=== PATIENT | female | born 1955 | race Caucasian/White ===

== ENCOUNTER 2019-01-31 04:42 | Emergency (ER) | payer BC, MEDICARE ==
[2019-01-31 04:52] VITALS: BP 120/81; BMI 26.6
[2019-01-31] MEDS ORDERED: SINGULAIR10 MG PO (04:54)
[2019-01-31] MEDS ORDERED: AMBIEN CR 6.26.25 MG PO (04:54)
[2019-01-31] MEDS ORDERED: VOLTAREN75 MG PO (05:49)
[2019-01-31 06:38] LABS: APPEARANCE CLEAR (CLEAR); BILIRUBIN NEGATIVE (NEGATIVE); COLOR YELLOW (YELLOW); GLUCOSE NEGATIVE (NEGATIVE); KETONE NEGATIVE (NEGATIVE); NITRITE NEGATIVE (NEGATIVE); PROTEIN NEGATIVE (NEGATIVE); UROBILINOGEN NORMAL (NORMAL)
[2019-01-31 06:39] LABS: BACTERIA MANY /hpf (NONE SEEN); RED CELLS - URINE 0-5 /hpf (0-5)
[2019-01-31 06:40] LABS: UDS - AMPHET NEGATIVE QUAL (NEGATIVE); UDS - BARB NEGATIVE QUAL (NEGATIVE); UDS - BENZO NEGATIVE QUAL (NEGATIVE); UDS - COCAINE NEGATIVE QUAL (NEGATIVE); UDS - OPIATE NEGATIVE QUAL (NEGATIVE); UDS - PCP NEGATIVE QUAL (NEGATIVE); UDS - THC POSITIVE QUAL (NEGATIVE)
[2019-01-31] MEDS ORDERED: MACROBID100 MG PO (06:49)
[2019-01-31 07:20] LABS: BASOPHILS 0.3 % (0-2); EOSINOPHILS 0.6 % (0-7); HEMOGLOBIN 14.7 g/dL (12-16); IMMATURE GRANULOCYTES 0.1 % (0-5); LYMPHOCYTES 20.4 % (15-50); MCH 28.7 pg (26.0-34.0); MCHC 34.2 g/dL (31.0-37.0); MCV 83.8 fL (80.0-100.0); MEAN PLATELET VOLUME 10.2 fL (7.4-10.4); MONOCYTES 9.6 % (2-11); PLATELET COUNT 260 10x3/uL (130-400); RBC 5.13 10x6/uL (4.00-5.40); RDW 13.3 % (11.5-14.5); WBC 7.8 10x3/uL (4.8-10.8)
[2019-01-31 07:39] LABS: ALBUMIN 3.9 g/dL (3.4-5.0); ALKALINE PHOSPHATASE 73 U/L (46-116); ALT (SGPT) 35 U/L (10-68); BILIRUBIN - TOTAL 0.47 mg/dL (0.2-1.3); CALC OSMOLALITY 278 mosm/kg (275-300); CALCIUM 9.4 mg/dL (8.5-10.1); CARBON DIOXIDE 25.1 mmol/L (21.0-32.0); CHLORIDE - SERUM 105 mmol/L (98-107); CREATININE - SERUM 0.7 mg/dL (0.6-1.3); GLUCOSE 102 mg/dL (74-106); POTASSIUM - SERUM 4.3 mmol/L (3.5-5.1); PROTEIN - SERUM 7.3 g/dL (6.4-8.2); SODIUM 140 mmol/L (136-145); UREA NITROGEN 13 mg/dL (7-18); eGFR NON AFRICAN AMERICAN 89 mL/min (90-120)
== END 2019-01-31 08:07 | disposition home or self-care (01) ==
LOC: D.ER 04:42
PROVIDERS: Emergency Medicine
DX: M94.0 Chondrocostal junction syndrome [Tietze] (principal); N30.90 Cystitis, unspecified without hematuria

== ENCOUNTER 2019-02-22 12:31 | Emergency (ER) | payer BC, MEDICARE ==
[~2019-02-22] VITALS: Ht 175.3 cm; Wt 63.6 kg
[~2019-02-22 12:31] MED LIST: AMBIEN CR 6.26.25 MG PO; MACROBID100 MG PO; SINGULAIR10 MG PO; VOLTAREN75 MG PO
[2019-02-22 12:39] VITALS: Ht 175.3 cm; Wt 63.6 kg
[2019-02-22 13:00] LABS: APPEARANCE CLEAR (CLEAR); BILIRUBIN NEGATIVE (NEGATIVE); COLOR YELLOW (YELLOW); GLUCOSE NEGATIVE (NEGATIVE); KETONE NEGATIVE (NEGATIVE); NITRITE NEGATIVE (NEGATIVE); PROTEIN NEGATIVE (NEGATIVE); SPECIFIC GRAVITY 1.015 (1.005-1.020); UROBILINOGEN NORMAL (NORMAL)
[2019-02-22 13:02] LABS: EPITHELIAL CELLS 0-5 /hpf (0-5); RED CELLS - URINE 0-5 /hpf (0-5); WHITE CELLS - URINE 0-5 /hpf (0-5)
[2019-02-22 13:03] LABS: BACTERIA FEW /hpf (NONE SEEN)
[2019-02-22 13:09] LABS: BASOPHILS 0.2 % (0-2); EOSINOPHILS 0.7 % (0-7); HEMATOCRIT 44.2 % (36.0-48.0); IMMATURE GRANULOCYTES 0.2 % (0-5); LYMPHOCYTES 20.4 % (15-50); MCH 28.6 pg (26.0-34.0); MCHC 33.9 g/dL (31.0-37.0); MCV 84.2 fL (80.0-100.0); MEAN PLATELET VOLUME 9.6 fL (7.4-10.4); MONOCYTES 10.8 % (2-11); NEUTROPHILS 67.7 % (40-80); PLATELET COUNT 277 10x3/uL (130-400); RBC 5.25 10x6/uL (4.00-5.40); RDW 13.6 % (11.5-14.5); WBC 8.6 10x3/uL (4.8-10.8)
[2019-02-22 13:30] LABS: UDS - AMPHET NEGATIVE QUAL (NEGATIVE); UDS - BARB NEGATIVE QUAL (NEGATIVE); UDS - BENZO NEGATIVE QUAL (NEGATIVE); UDS - COCAINE NEGATIVE QUAL (NEGATIVE); UDS - OPIATE NEGATIVE QUAL (NEGATIVE); UDS - PCP NEGATIVE QUAL (NEGATIVE); UDS - THC POSITIVE QUAL (NEGATIVE)
[2019-02-22 13:40] LABS: ALBUMIN 4.1 g/dL (3.4-5.0); ALKALINE PHOSPHATASE 84 U/L (46-116); ALT (SGPT) 43 U/L (10-68); BILIRUBIN - TOTAL 0.54 mg/dL (0.2-1.3); CALC OSMOLALITY 274 mosm/kg (275-300); CARBON DIOXIDE 25.1 mmol/L (21.0-32.0); CHLORIDE - SERUM 102 mmol/L (98-107); CREATININE - SERUM 0.8 mg/dL (0.6-1.3); GLUCOSE 105 mg/dL (74-106); POTASSIUM - SERUM 4.3 mmol/L (3.5-5.1); PROTEIN - SERUM 7.4 g/dL (6.4-8.2); SODIUM 137 mmol/L (136-145); UREA NITROGEN 14 mg/dL (7-18); eGFR NON AFRICAN AMERICAN 76 mL/min (90-120)
[2019-02-22 13:46] LABS: THYROID STIMULATING HORMONE 0.83 uIU/mL (0.36-3.74)
[2019-02-22 14:10] VITALS: BP 158/89
== END 2019-02-22 14:11 | disposition home or self-care (01) ==
LOC: D.ER 12:31
PROVIDERS: Emergency Medicine
DX: F31.9 Bipolar disorder, unspecified (principal); F41.9 Anxiety disorder, unspecified; F22 Delusional disorders

== ENCOUNTER 2019-06-26 13:51 | Inpatient (IN) | payer BC, MEDICARE ==
[~2019-06-26] VITALS: Ht 172.7 cm; Wt 76.5 kg
[2019-06-26 14:54] LABS: APPEARANCE CLEAR (CLEAR); BILIRUBIN NEGATIVE (NEGATIVE); COLOR STRAW (YELLOW); GLUCOSE NEGATIVE (NEGATIVE); KETONE NEGATIVE (NEGATIVE); NITRITE NEGATIVE (NEGATIVE); PROTEIN NEGATIVE (NEGATIVE); SPECIFIC GRAVITY 1.005 (1.005-1.020); UROBILINOGEN NORMAL (NORMAL)
[2019-06-26 15:04] LABS: UDS - AMPHET NEGATIVE QUAL (NEGATIVE); UDS - BARB NEGATIVE QUAL (NEGATIVE); UDS - BENZO NEGATIVE QUAL (NEGATIVE); UDS - COCAINE NEGATIVE QUAL (NEGATIVE); UDS - OPIATE NEGATIVE QUAL (NEGATIVE); UDS - PCP NEGATIVE QUAL (NEGATIVE); UDS - THC POSITIVE QUAL (NEGATIVE)
[2019-06-26 15:59] LABS: BASOPHILS 0.3 % (0-2); EOSINOPHILS 0.1 % (0-7); HEMATOCRIT 44.4 % (36.0-48.0); HEMOGLOBIN 15.1 g/dL (12-16); IMMATURE GRANULOCYTES 0.3 % (0-5); LYMPHOCYTES 13.5 % (15-50); MCV 85.2 fL (80.0-100.0); MONOCYTES 10.5 % (2-11); NEUTROPHILS 75.3 % (40-80); PLATELET COUNT 277 10x3/uL (130-400); RBC 5.21 10x6/uL (4.00-5.40); RDW 12.8 % (11.5-14.5); WBC 7.9 10x3/uL (4.8-10.8)
[2019-06-26 16:09] LABS: APTT 26.1 SECONDS (22.8-39.4); PROTIME 12.7 SECONDS (11.6-15.0)
[2019-06-26 16:17] LABS: CALC OSMOLALITY 272 mosm/kg (275-300); CALCIUM 9.2 mg/dL (8.5-10.1); CARBON DIOXIDE 28.8 mmol/L (21.0-32.0); CHLORIDE - SERUM 99 mmol/L (98-107); CREATININE - SERUM 0.6 mg/dL (0.6-1.3); GLUCOSE 101 mg/dL (74-106); SODIUM 137 mmol/L (136-145); UREA NITROGEN 10 mg/dL (7-18); eGFR NON AFRICAN AMERICAN > 90 mL/min (90-120)
[2019-06-26 16:48] LABS: ALBUMIN 3.9 g/dL (3.4-5.0); ALKALINE PHOSPHATASE 88 U/L (46-116); ALT (SGPT) 35 U/L (10-68); BILIRUBIN - TOTAL 0.37 mg/dL (0.2-1.3); CHOL - HDL RATIO 3.5 ratio (2.3-4.1); CHOLESTEROL, TOTAL 225 mg/dL (0-200); HDL CHOLESTEROL 64 mg/dL (32-96); LDL CHOLESTEROL 139 mg/dL (0-100); LDL-HDL RATIO 2.2 ratio (1.5-3.5); MAGNESIUM - SERUM 1.9 mg/dL (1.8-2.4); PROTEIN - SERUM 7.7 g/dL (6.4-8.2); THYROID STIMULATING HORMONE 1.23 uIU/mL (0.36-3.74); TRIGLYCERIDE 111 mg/dL (30-200)
--- NOTE | 2019-06-26 18:28 | NUR ---
PT ACCEPTED TO [facility]IOR [facility] BY ABISAI COOPER. SBAR REPORT CALLED TO ABISAI COOPER AT THIS TIME. ROOM WILL BE AVAILABLE AT 1900 TODAY.
[2019-06-26] MEDS ORDERED: PRED-FORTE 1% OP5 ML LEFT EYE (21:18)
[2019-06-26] MEDS ORDERED: AMITRIPTYLINE H50 MG PO (21:19)
[2019-06-26] MEDS ORDERED: ESKALITH CR450 M1 PO (21:19)
[2019-06-26] MEDS ORDERED: BUSPAR10 MG PO (21:20)
[2019-06-26 21:26] VITALS: BP 180/100; BMI 26.3
--- NOTE | 2019-06-26 21:57 | NUR ---
PT ADMIT TO UNIT FROM ER WITH HOSPITAL STAFF AND DAUGHTER SHELIA PRESENT. SHE ARRIVED ON THE UNIT IN A WHEELCHAIR BUT IS AMBULATORY WITHOUT ASSIST. CODE WORD IS [place]. CODE STATUS IS DNR. HER DAUGHTER TOOK ALL BELONGINGS WITH HER. SHE IS CONTINENT AND ABLE TO MAKE HER NEEDS KNOWN.
[2019-06-27 08:43] LABS: CHOL - HDL RATIO 4.1 ratio (2.3-4.1); LDL-HDL RATIO 2.6 ratio (1.5-3.5); THYROID STIMULATING HORMONE 2.14 uIU/mL (0.36-3.74)
[2019-06-27 08:52] VITALS: Ht 172.7 cm; Wt 76.5 kg
[2019-06-27 09:47] VITALS: BP 146/53
--- NOTE | 2019-06-27 10:32 | NUR ---
B) The patient is anxious and she is worried about court and worried about her eyes. She is pleasant, but her thought process is scattered. I) Provide prescribed meds. R) Ativan 0.5 mg po given. The patient ambulates. She is writing in her notebook. P) Continue POC.
--- NOTE | 2019-06-27 14:54 | NUR ---
Idris from [facility] called to ask about the patient's d/c date so that he can let the court know. let him know we will meet with the psychiatrist and we will know more after that time and can call you. His number is [phone]. He also requested we call Chica Childers the patient's therapist when she is discharged.
--- NOTE | 2019-06-27 15:06 | NUR ---
The patient is manic and she is rambling. She is talking about random subjects, flitting from one subject to another. One she is discussing her POA then she tells me about a pill for young girls so that abortions never have to take place. She then discusses places to live like [place] and then [place], [place]. She has been asked to stopp speaking so that the other patient's can rest. Provided her ativan 0.5 mg po now because she is revving herself up in speech and she is starting to have racing thoughts and she is getting anxious speaking about court.
--- NOTE | 2019-06-27 20:47 | NUR ---
RECEIVED IN PATIENT ROOM. RESTING IN BED WITH EYES OPEN. CALM AND COOPERATIVE WITH CARE AND ASSESSMENT. NO MANIC BEHAVIOR NOTED. REDIRECT AND REORIENT NEEDED. RESTING IN BED WITH EYES CLOSED AT THIS TIME. CONTINUE PLAN OF CARE.
[2019-06-27 21:58] VITALS: BP 112/72
[2019-06-28 08:10] LABS: RAPID PLASMA REAGIN Non Reactive (Non Reactive)
[2019-06-28 08:29] VITALS: BP 119/87
--- NOTE | 2019-06-28 12:20 | NUR ---
PT IS TALKING ABOUT VARIOUS SUBJECTS AND STRECHING IN YOGA POSES. PT TAKES HER MEDICATIONS. PT IS ORIENTED AND FRIENDLY WITH STAFF. PT CAN BE INAPPROPRIATE AT TIMES IN WORDS AND ACTIONS.
--- NOTE | 2019-06-28 13:14 | PSY ---
PATIENT NAME:LIZBETH CARL MEDICAL RECORD: [id number] : 51 LOCATION:[facility] An[facility]ul1124 ADMISSION DATE: 06/26/19 ACCOUNT: [id number] PSYCHIATRIC EVALUATION DATE OF EVALUATION: 06/27/19 IDENTIFYING DATA: The patient is 63 years old and she is admitted to the hospital on a voluntary basis. CHIEF COMPLAINT: Anil. HISTORY OF PRESENT ILLNESS: The patient has a known history of bipolar disorder and she presented to the ER, manic. Apparently, a local automotive electrician helper ordered the evaluation or if she refused the evaluation, he was going to put her in shelter for criminal mischief charges. When asked to explain this, she takes me back to the and begins talking about some sort of argument with the property owners association over some flower beds that she is supposed to install. Because I suspected she was manic, I let her run with that story for more than 5 minutes uninterrupted and have no idea what she was talking about. After that, I asked her very focused questions and attempted to get information, but still she is unable to focus and answer questions in any organized way and most of which she says seems to be random and disorganized. I do not think she is trying to be deliberately evasive are difficult, she is simply manic. Apparently, she was supposed to be taking amitriptyline and lithium, but stopped about a month ago for reasons that are unclear and again asking questions about that provides me no information that is understandable or intelligible. PAST MEDICAL HISTORY: Largely unknown. The patient says she has had a hysterectomy and I know from her medication list that she has some sort of problems either with glaucoma or some other eye condition for which she takes a steroid eyedrop. PAST PSYCHIATRIC HISTORY: Apparently significant for extensive inpatient and outpatient treatment. She also had a suicide attempt in April of this year and was hospitalized in [place]. I am not sure why she was in [place] and again, her answer is unintelligible. FAMILY HISTORY: Unknown. ALLERGIES: ABILIFY, DEPAKOTE, THORAZINE, ZYPREXA, AND GEODON. CURRENT MEDICATIONS: Include Voltaren and multiple eye drops. SOCIAL HISTORY: The patient denies a history of drug or alcohol use, although she quickly adds that she smokes marijuana, but it is not a drug, it is an herb and she thinks there are no problems with this and it helps her sleep. She denies using cigarettes or other drugs. 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 MENTAL STATUS EXAMINATION: The patient is awake, alert and oriented to person, place and somewhat to time and situation. Her mood is anxious. Her affect is constricted. Thought processes are wildly disorganized with mood lability. She denies any active thoughts of harming herself or others. She denies psychotic symptoms. ASSESSMENT: AXIS I: 1. Bipolar disorder, manic. 2. Marijuana use disorder. AXIS II: Deferred. AXIS III: Asthma. AXIS IV: Moderate. AXIS V: Global assessment of functioning is 40. PLAN: At this time, the patient is manic. She has all the symptoms of classic anil associated with a bipolar I disorder. I am not sure I understand why she stopped taking her lithium, but I am going to start her back on it. She wants amitriptyline, which I have talked to her about not being in her best interest, but she is very insistent and simply to placate her at this point, I am going to allow her to have the amitriptyline. She was given Haldol and Ativan last night, she says it helped and indeed, the nursing report also indicates that she slept better after receiving the medication. TRANSINT:[id number] Voice Confirmation ID: [id number] DOCUMENT ID: [id number] ANIYAH DUGAN MD at 1314 CC: [id number] DICTATION DATE: 06/27/19 1800 INTERVENTIONAL NEURORADIOLOGIST: 06/27/19 1827 ADM IN [facility] [address] [place] [address]
--- NOTE | 2019-06-28 16:50 | NUR ---
PATIENT C/O OF ALL THE NOISE IN THE DAY AREA STATING "I CANT DEAL WITH ALL THIS NOISE. THE T.V. ALL THE PEOPLE AND I JUST CAN'T. I NEED SOMETHING TO CALM MY NERVES. AT HOME I'D USUALLY TAKE A WALK" ATIVAN 0.[address] DUGAN ORDER. WILL REASSESS
[2019-06-28 20:00] VITALS: BP 113/80
--- NOTE | 2019-06-28 21:31 | NUR ---
PATIENT CAN BE A LITTLE DEMANDING AT TIMES AND CAN CROSS BOUNDARIES, COMPLIANT WITH MEDS, NO REACTION NOTED. WILL FOLLOW POC
--- NOTE | 2019-06-29 09:50 | NUR ---
PATIENT SITTING IN OTHER ROOM READING A BOOK. PT IS LESS INTRUSIVE, DEMANDING, AND LESS TALKATIVE. PT IS TAKING MEDICATIONS, BEING COOPERATATIVE WITH STAFF. PT DID NOT SLEEP WELL. PT IS HAVING A LITHUIM LEVEL DRAWN THIS SHIFT. WILL CONT PLAN OF CARE.
[2019-06-29 11:03] VITALS: BP 132/90
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
--- NOTE | 2019-06-29 16:30 | NUR ---
PT DAUGHTER HERE TO VISIT. PT AND DAUGHTER ASKED QUESTIONS REGARDING D/C DATE. PT AND DAUGHTER CONCERNED IN REGARDS TO UPCOMING COURT DATE ON 07/02/19 REGARDING PT HOUSE PER PT REPORT. THIS NURSE EXPLAINED I WOULD DISCUSS THIS WITH SENIOR STORAGE ENGINEER AND DR. DUGAN IN THE MORNING. STAFF WOULD LET HER KNOW SOMETHING SOON POSSIBLE. DAUGHTER STATED " SHE WOULD CALL IN THE MORNING TO SPEAK WITH SOCIAL ROSSI." THIS NURSE ANSWERED ALL QUESTIONS AND CONCERNS AT THIS TIME. DISCUSSED LABS AND MEDS WITH PT AND DAUGHTER AT THIS TIME.
[2019-06-29 19:26] VITALS: BP 137/88
--- NOTE | 2019-06-29 21:27 | NUR ---
RECEIVED IN DINING AREA. DOING SOME YOGA. SOCIAL WITH STAFF AND PEERS. CALM AND COOPERATIVE WITH CARE AND ASSESSMENT. ENCOURAGE TO EXPRESS NEEDS. SITTING QUIETLY IN DAYROOM AT THIS TIME. CONTINUE PLAN OF CARE
--- NOTE | 2019-06-30 01:04 | NUR ---
PATIENT REQUEST ATIVAN FOR ANXIETY. STATES SHE IS HAS ANXIETY AND CANT SLEEP. PRN ATIVAN 0.5 MG PO GIVEN FOR ANXIETY.
--- NOTE | 2019-06-30 02:20 | NUR ---
RESTING IN BED WITH EYES CLOSED.
[2019-06-30 05:10] LABS: APPEARANCE CLEAR (CLEAR); BILIRUBIN NEGATIVE (NEGATIVE); COLOR YELLOW (YELLOW); GLUCOSE NEGATIVE (NEGATIVE); KETONE NEGATIVE (NEGATIVE); NITRITE NEGATIVE (NEGATIVE); PROTEIN NEGATIVE (NEGATIVE); SPECIFIC GRAVITY 1.005 (1.005-1.020); UROBILINOGEN NORMAL (NORMAL)
[2019-06-30 05:12] LABS: BACTERIA FEW /hpf (NEGATIVE); EPITHELIAL CELLS 0-5 /hpf (0-5); RED CELLS - URINE 0-5 /hpf (0-5); WHITE CELLS - URINE 0-5 /hpf (NEGATIVE)
[2019-06-30 05:35] LABS: UDS - AMPHET NEGATIVE QUAL (NEGATIVE); UDS - BARB NEGATIVE QUAL (NEGATIVE); UDS - BENZO NEGATIVE QUAL (NEGATIVE); UDS - COCAINE NEGATIVE QUAL (NEGATIVE); UDS - OPIATE NEGATIVE QUAL (NEGATIVE); UDS - PCP NEGATIVE QUAL (NEGATIVE); UDS - THC NEGATIVE QUAL (NEGATIVE)
--- NOTE | 2019-06-30 08:00 | NUR ---
REC'D PT IN HALLWAY BY NURSES STATION. AWAKE AND ALERT X 3. PT IS VERY TALKATIVE THIS MORNING. CALM AND COOPERATIVE WITH ASSESSMENT. PRESCRIBED MEDS PROVIDED. MED COMPLIANT. REDIRECT AND REORIENT NEEDED. FALL PRECAUTIONS IN PLACE. WILL CPOC.
[2019-06-30 09:13] VITALS: BP 138/94
--- NOTE | 2019-06-30 15:38 | PN ---
PATIENT:LIZBETH CARL MEDICAL RECORD: [id number] LOCATION:[facility] ADMISSION DATE: 06/26/19 PROGRESS NOTE DATE OF SERVICE: 06/29/2019 SUBJECTIVE: The patient's case was discussed with staff. She has no new complaint. OBJECTIVE: The patient is hyperverbal, but better. She is still disorganized in her thought processes. ASSESSMENT: Bipolar disorder. PLAN: The patient will have a lithium level checked. She wants me to check an estrogen level. I do not think that is necessary, but I am going to order it just because she has requested it and she is easily agitated and me arguing with her or trying to discuss with her why it is not necessary is not very effective. TRANSINT:[id number] Voice Confirmation ID: [id number] DOCUMENT ID: [id number] ANIYAH DUGAN MD at 1538 CC: [id number] DICTATION DATE: 06/29/19 1134 PRIMER PRESS OPERATOR: 06/29/19 1216 ADM IN [place] [id number] [place] [address]
[2019-06-30 20:00] VITALS: BP 167/77
--- NOTE | 2019-06-30 21:26 | NUR ---
RECEIVED IN DAYROOM. WALKING ABOUT SOCIAIZING WITH STAFF AND PEERS. CALM AND COOPERATIVE WITH CARE AND ASSESSMENT. NO MANIC BEHAVIOR THIS PM. ENCOURAGE TO EXPRESS NEEDS. RESTING IN BED WITH EYES CLOSED. CONTINUE PLAN OF CARE
[2019-07-01 08:58] VITALS: BP 122/83
--- NOTE | 2019-07-01 10:39 | NUR ---
RECEIVDED PATIENT IN DINING ROOM FOR B'FAST, ALERT, CALM, COOPERATIVE, NO AGGRESSION NOTED. MEDS ADMIN PER ORDERS WITH COMPLETE MED COMPLIANCE NOTED. HOWEVER, PT STATED THAT SHE WAS GOING TO SPEAK TO PHYSICIAN ABOUT HER CLONAZEPAM ORDER, STATING THAT THE MED CAUSED HER TO HAVE BLURRED VISION. PT STATES THAT SHE WOULD PREFER TO HAVE ATIVAN INSTEAD. COOPERATIVE WITH POC.
--- NOTE | 2019-07-01 11:24 | NUR ---
Nutrition Follow-up: Diet: Regular PO intake: 100% x last 8 meals Last BM = 06/28/19. Wt: 172# (06/29/19); Admit wt: 175# (06/26/19) No new labs. Meds and nursing skin assessment reviewed. Continue current nutrition regimen. RD Following.
--- NOTE | 2019-07-01 15:36 | PN ---
PATIENT:LIZBETH CARL MEDICAL RECORD: [id number] LOCATION:[facility]112 ADMISSION DATE: 06/26/19 PROGRESS NOTE DATE OF SERVICE: 06/30/2019 SUBJECTIVE: The patient's case was discussed with staff. She has no new complaint. OBJECTIVE: The patient is sleeping well. She still is hyperverbal. She has no thoughts of harming herself or others. Her lithium is therapeutic at 0.64. ASSESSMENT: Bipolar disorder. PLAN: Current medicines have been reviewed and will be maintained. I anticipate she can be transitioned out of the hospital soon. TRANSINT:[id number] Voice Confirmation ID: [id number] DOCUMENT ID: [id number] ANIYAH DUGAN MD at 1536 CC: [id number] DICTATION DATE: 06/30/19 1628 STUDIO DESIGNER: 06/30/19 1632 ADM IN [facility] [address] [place] [id number]
[2019-07-01] MEDS ORDERED: ATIVAN0.5 MG PO (15:44)
[2019-07-01] MEDS ORDERED: FEXOFENADINE HC60 MG PO (15:44)
[2019-07-01] MEDS ORDERED: VITAMIN D31000 UNI2 PO (15:45)
[2019-07-01 22:08] VITALS: BP 136/87
--- NOTE | 2019-07-01 23:19 | NUR ---
RECEIVED IN HALLWAY. WALKING TO NURSES STATION. RESTLESS AT TIMES. CALM AND COOPERATIVE WITH CARE AND ASSESSMENT. ENCOURAGE TO EXPRESS NEEDS. RESTING IN BED WITH EYES CLOSED AT THIS TIME. CONTINUE PLAN OF CARE
[2019-07-02 08:48] VITALS: BP 129/94
--- NOTE | 2019-07-02 09:30 | NUR ---
PATIENT ALERT, CALM, COOPERATIVE, MEDS ADMIN PER ORDERS WITH COMPLETE MED COMPLIANCE NOTED. DISCHARGE TEACHING DONE. PT CALMLY AWAITING DISCHARGE LATER THIS MORNING.
--- NOTE | 2019-07-02 12:43 | PN ---
PATIENT:LIZBETH CARL MEDICAL RECORD: [id number] LOCATION:SIL[facility] Anshul112 ADMISSION DATE: 06/26/19 PROGRESS NOTE DATE OF SERVICE: 07/01/2019 SUBJECTIVE: The patient's case was discussed with staff. She has no new complaint. OBJECTIVE: The patient is less agitated or manic or hyperverbal than she has been. She certainly denies that she would seek to harm herself or others and I do not view her as an acute risk to herself or others. Her impulsivity and lack of judgment do indeed give her the potential to act impulsively and irresponsible, but not in any way that is true danger to others. ASSESSMENT: Bipolar disorder. I am going to discontinue the patient's Klonopin and we will start her on a low dose of Ativan. She will be monitored for clinical changes associated with its use and I anticipate she can be transitioned out of the hospital tomorrow. TRANSINT:[id number] Voice Confirmation ID: [id number] DOCUMENT ID: [id number] ANIYAH DUGAN MD at 1243 CC: [id number] DICTATION DATE: 07/01/19 1541 CRIME SCENE EXAMINER: 07/01/19 1733 ADM IN [facility] [address] [place] [address]
--- NOTE | 2019-07-03 14:26 | PN ---
PATIENT:LIZBETH CARL MEDICAL RECORD: [id number] LOCATION:[facility]ers[facility]berlee ADMISSION DATE: 06/26/19 PROGRESS NOTE DATE OF SERVICE: 07/02/2019 SUBJECTIVE: The patient's case was discussed with staff. She has no new complaint. OBJECTIVE: The patient is in good behavioral control with limited insight about her condition. She tolerates her medicines well. ASSESSMENT: No change in diagnoses. PLAN: The patient will be transitioned out of the hospital today. Long-term prognosis is guarded. TRANSINT:[id number] Voice Confirmation ID: [id number] DOCUMENT ID: [id number] ANIYAH UDGAN MD at 1426 CC: [id number] DICTATION DATE: 07/02/19 1623 FIRE TENDER: 07/02/191953 DIS IN 07/02/19 [facility] [address] [place] [address]
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
== END 2019-07-02 10:45 | disposition home or self-care (01) | DRG 885 ==
LOC: D.ER 13:51 → D.PSYCH 18:42
PROVIDERS: Family Medicine; ADMIT Psychiatry & Neurology Psychiatry; ATTEND Psychiatry & Neurology Psychiatry
DX: F31.2 Bipolar disorder, current episode manic severe with psychotic features (principal); F23 Brief psychotic disorder; F12.90 Cannabis use, unspecified, uncomplicated; J45.909 Unspecified asthma, uncomplicated; G47.00 Insomnia, unspecified; F51.9 Sleep disorder not due to a substance or known physiological condition, unspecified; E55.9 Vitamin D deficiency, unspecified; Z91.14 Patient's other noncompliance with medication regimen; M19.90 Unspecified osteoarthritis, unspecified site; E78.5 Hyperlipidemia, unspecified; F41.9 Anxiety disorder, unspecified

== ENCOUNTER 2020-10-23 15:02 | Emergency (ER) | payer BC, MEDICARE ==
[~2020-10-23] VITALS: Ht 172.7 cm; Wt 80.9 kg
[~2020-10-23 15:02] MED LIST changes: +AMITRIPTYLINE H50 MG PO; +ATIVAN0.5 MG PO; +BUSPAR10 MG PO; +ESKALITH CR450 M1 PO; +FEXOFENADINE HC60 MG PO; +PRED-FORTE 1% OP5 ML LEFT EYE; +VITAMIN D31000 UNI2 PO
[2020-10-23 15:14] VITALS: BP 146/85; Ht 172.7 cm; Wt 80.9 kg
[2020-10-23 16:39] LABS: SARS-CoV-2 ANTIGEN NEGATIVE- SARS-COV-2 (NEGATIVE)
[2020-10-23] MEDS ORDERED: BROMFED-DM COU473 ML PO (16:57)
[2020-10-23] MEDS ORDERED: XOPENEX HFA15 GM INH (16:57)
[2020-10-23] MEDS ORDERED: DEBROX OTIC15 ML EACH EAR (16:57)
== END 2020-10-23 17:28 | disposition home or self-care (01) ==
LOC: D.ER 15:02
PROVIDERS: Family Medicine
DX: H61.23 Impacted cerumen, bilateral (principal); J40 Bronchitis, not specified as acute or chronic; J06.9 Acute upper respiratory infection, unspecified; Z20.822 Contact with and (suspected) exposure to COVID-19